=== PATIENT | female | born 1955 | race Caucasian/White ===

== ENCOUNTER 2018-10-30 10:33 | Outpatient (CLI) | payer OTHER ==
--- NOTE | 2018-10-30 12:29 | BD ---
DEXA BONE DENSITY STUDY: Date: HISTORY: Postmenopausal. FINDINGS: Lumbar Spine: BMD (g/cm2) L1 0.722 T-Score: -2.4 L2 0.749 T-Score: -2.5 L3 0.816 T-Score: -2.4 L4 0.864 T-Score: -1.8 Total 0.788 T-Score: -2.4 Left Femoral Neck: 0.672 T-Score: -1.6 Total Femur: 0.900 T-Score: -0.3 IMPRESSION: 1. Osteopenia of the lumbar spine and left femoral neck. Bone mineral density of the lumbar spine jaime rder on the osteoporosis range. 2. The 10 year fracture risk for a major osteoporotic fracture is 8.2% and for a hip fracture is 0.7 %. These fracture probabilities are calculated for an untreated patient. POS: OFF
== END 2018-10-30 10:34 | disposition home or self-care (01) ==
LOC: BICMAMMO 10:33
PROVIDERS: ATTEND Family Medicine
DX: M81.0 Age-related osteoporosis without current pathological fracture (principal); M85.852 Other specified disorders of bone density and structure, left thigh
CPT/HCPCS: 77080

== ENCOUNTER 2019-10-25 11:12 | Outpatient (CLI) | payer OTHER ==
--- NOTE | 2019-11-13 13:06 | MMO ---
Bilateral MAMMO Bilat Screen [facility]. CLINICAL HISTORY: Patient is 64 years old and is seen for screening. The patient has the following family history of breast cancer: paternal grandmother, malignant (generic). The patient has no personal history of cancer. The patient has a history of bilateral Breast reduction in 2004 - benign. VIEWS: The views performed were: bilateral craniocaudal with tomosynthesis and bilateral mediolateral oblique with tomosynthesis. FILMS COMPARED: The present examination has been compared to a prior imaging study performed at [facility] [place] on 01/11/2018. This study has been interpreted with the assistance of computer-aided detection. MAMMOGRAM FINDINGS: There are scattered fibroglandular densities. There are stable benign appearing calcifications seen in both breasts. There are also vascular calcifications. There are no suspicious masses, suspicious calcifications, or new areas of architectural distortion. IMPRESSION: THERE IS NO MAMMOGRAPHIC EVIDENCE OF MALIGNANCY. A ROUTINE FOLLOW-UP MAMMOGRAM IN 1 YEAR IS RECOMMENDED. THE RESULTS OF THIS EXAM WERE SENT TO THE PATIENT. ACR BI-RADS Category 2 - Benign finding MAMMOGRAPHY NOTE: 1. A negative mammogram report should not delay a biopsy if a dominant of clinically suspicious mass is present. 2. Approximately 10% to 15% of breast cancers are not detected by mammography. 3. Adenosis and dense breasts may obscure an underlying neoplasm. Reported by: OSEAS HERZOG MD Electonically Signed: [id number]
== END 2019-10-25 11:13 | disposition home or self-care (01) ==
LOC: BICMAMMO 11:12
PROVIDERS: ATTEND Family Medicine
DX: Z12.31 Encounter for screening mammogram for malignant neoplasm of breast (principal); Z91.89 Other specified personal risk factors, not elsewhere classified; Z98.890 Other specified postprocedural states; Z80.3 Family history of malignant neoplasm of breast
CPT/HCPCS: 77063; 77067